=== PATIENT | male | born 1975 | race Caucasian/White ===

== ENCOUNTER 2018-01-27 18:32 | Emergency (ER) | payer OTHER ==
[~2018-01-27] VITALS: Ht 182.9 cm; Wt 62.6 kg
[~2018-01-27 18:32] MED LIST: Norco 5-325 Ta1 EACH PO; Vibramycin100 MG PO
[2018-01-27] MEDS ORDERED: IBUP600 PO (19:42)
[2018-01-27] MEDS ORDERED: CYCL10 PO (19:42)
== END 2018-01-27 19:48 | disposition home or self-care (01) ==
LOC: ER 18:32
DX: S46.012A Strain of muscle(s) and tendon(s) of the rotator cuff of left shoulder, initial encounter (principal); M54.2 Cervicalgia; Z88.0 Allergy status to penicillin; Z87.891 Personal history of nicotine dependence; W10.9XXA Fall (on) (from) unspecified stairs and steps, initial encounter
CPT/HCPCS: 72040; 73030; 99283-25

== ENCOUNTER 2018-08-13 12:50 | Emergency (ER) | payer OTHER ==
[~2018-08-13] VITALS: Ht 180.3 cm; Wt 63.5 kg
[~2018-08-13 12:50] MED LIST changes: +CYCL10 PO; +IBUP600 PO; +Robaxin500 MG PO
[2018-08-13] MEDS ORDERED: NAPR550 PO (16:13)
[2018-08-13] MEDS ORDERED: Robaxin500 MG PO (16:13)
== END 2018-08-13 16:15 | disposition home or self-care (01) ==
LOC: ER 12:50
DX: M54.2 Cervicalgia (principal); M54.5 Low back pain; Z88.0 Allergy status to penicillin; Z87.891 Personal history of nicotine dependence
CPT/HCPCS: 71046; 72040; 72100; 73590; 96372; 99284-25; J1885

== ENCOUNTER 2018-09-09 15:24 | Emergency (ER) | payer OTHER ==
[~2018-09-09] VITALS: Ht 180.3 cm; Wt 65.3 kg
[~2018-09-09 15:24] MED LIST changes: +NAPR550 PO
[2018-09-09] MEDS ORDERED: Bactrim Ds Tab1 EACH PO (15:54)
== END 2018-09-09 16:10 | disposition home or self-care (01) ==
LOC: ER 15:24
DX: L02.31 Cutaneous abscess of buttock (principal); R59.0 Localized enlarged lymph nodes; Z88.0 Allergy status to penicillin
CPT/HCPCS: 10060; 99283-25; A9270-GY

== ENCOUNTER 2019-06-03 09:26 | Emergency (ER) | payer OTHER ==
[~2019-06-03] VITALS: Ht 180.3 cm; Wt 58.1 kg
[~2019-06-03 09:26] MED LIST changes: +Bactrim Ds Tab1 EACH PO
[2019-06-03 11:39] LABS: U Amphetamine Screen Not Detected; U Barbituate Screen Not Detected; U Benzodiazapine Screen Not Detected; U Buprenorphine Screen Not Detected; U Cannabinoids Screen DETECTED; U Cocaine Screen Not Detected; U Methadone Screen Not Detected; U Methamphetamine Screen Not Detected; U Opiates Screen Not Detected; U Oxycodone Screen Not Detected; U Phencyclidine Screen Not Detected; U Propoxyphene Screen Not Detected
[2019-06-03] MEDS ORDERED: Robaxin-750750 MG PO (11:56)
== END 2019-06-03 12:07 | disposition home or self-care (01) ==
LOC: ER 09:26
PROVIDERS: Physician Assistant
DX: R07.89 Other chest pain (principal); R51 Headache; M54.2 Cervicalgia; Z88.0 Allergy status to penicillin; Z87.891 Personal history of nicotine dependence; Y04.0XXA Assault by unarmed brawl or fight, initial encounter
CPT/HCPCS: 70450; 71046; 72125; 99284-25

== ENCOUNTER 2024-10-21 10:32 | Emergency (ER) | payer OTHER ==
[~2024-10-21] VITALS: Ht 182.9 cm; Wt 63.5 kg
[~2024-10-21 10:32] MED LIST changes: +Robaxin-750750 MG PO
[2024-10-21 10:39] VITALS: BP 152/84
[2024-10-21] MEDS ORDERED: NS 1,000 ML IV SCH (10:50)
[2024-10-21] MEDS ORDERED: Ketorolac Tromethamine 30mg Vial IV ONE (10:50)
[2024-10-21 11:05] LABS: BASOPHILS ABSOLUTE AUTO 0.01 K/mm3 (0.00-0.23); BASOPHILS PERCENT AUTO 0 % (0-2); EOSINOPHILS ABSOLUTE AUTO 0.13 K/mm3 (0.00-0.68); EOSINOPHILS PERCENT AUTO 2 % (0-6); Hematocrit 41.7 % (37.0-53.0); Hemoglobin 14.6 g/dL (13.5-17.5); IMMATURE GRAN ABSOLUTE AUTO 0.03 K/mm3 (0.00-0.10); IMMATURE GRAN PERCENT AUTO 0 % (0-1); LYMPHOCYTES ABSOLUTE AUTO 1.25 K/mm3 (0.84-5.20); LYMPHOCYTES PERCENT AUTO 15 % (21-46); MONOCYTES ABSOLUTE AUTO 0.73 K/mm3 (0.16-1.47); MONOCYTES PERCENT AUTO 9 % (4-13); Mean Corpuscular HGB Conc 35.0 g/dL (31.5-36.5); Mean Corpuscular Volume 87 fL (80-100); NEUTROPHILS ABSOLUTE AUTO 6.08 K/mm3 (1.96-9.15); NEUTROPHILS PERCENT AUTO 74 % (41-73); NRBC ABSOLUTE 0.00 K/mm3 (0.00-0.02); NRBC Auto 0.0 /100 WBC (0.0-0.2); Platelet Count 298 K/mm3 (150-400); RDW Coefficient Variation 12.8 % (11.7-14.2); RDW Standard Deviation 41.3 fL (35.1-46.3)
[2024-10-21 11:26] LABS: Alanine Aminotransfer (ALT/SGP 23.0 U/L (12-78); Albumin, Blood 3.8 g/dL (3.4-5.0); Albumin/Globulin Ratio 1.1 (0.8-1.8); Anion Gap 9.0 mmol/L (3-11); Aspartate Aminotrans (AST/SGOT 23.0 U/L (12-37); Bilirubin, Total 0.6 mg/dL (0.1-1.0); Blood Urea Nitrogen 11.0 mg/dL (8-24); CO2, Blood 22.0 mmol/L (21-32); Calcium, Blood 8.5 mg/dL (8.5-10.1); Chloride, Blood 108.0 mmol/L (98-108); Creatinine, Blood 0.75 mg/dL (0.60-1.20); Globulin, Blood 3.5 g/dL (2.2-4.0); Glucose, Blood 130.0 mg/dL (70-99); Potassium, Blood 3.9 mmol/L (3.5-5.5); Sodium, Blood 135.0 mmol/L (136-145); Total Protein, Blood 7.3 g/dL (6.4-8.2)
[2024-10-21] MEDS ORDERED: OXYC5 PO (14:00)
== END 2024-10-21 14:03 | disposition home or self-care (01) ==
LOC: ER 10:32
PROVIDERS: Emergency Medicine
DX: K85.90 Acute pancreatitis without necrosis or infection, unspecified (principal); G43.909 Migraine, unspecified, not intractable, without status migrainosus; Z88.0 Allergy status to penicillin; Z79.899 Other long term (current) drug therapy
CPT/HCPCS: 76705; 80053; 83690; 85025; 96361; 96374; 99284-25; J1885; J7030

== ENCOUNTER 2024-11-09 13:17 | Emergency (ER) | payer OTHER ==
[~2024-11-09] VITALS: Ht 182.9 cm; Wt 68.0 kg
[~2024-11-09 13:17] MED LIST changes: +OXYC5 PO
[2024-11-09 13:31] VITALS: BP 109/75
[2024-11-09] MEDS ORDERED: IBUP600 PO (14:27)
== END 2024-11-09 14:43 | disposition home or self-care (01) ==
LOC: ER 13:17
DX: S80.11XA Contusion of right lower leg, initial encounter (principal); Z87.891 Personal history of nicotine dependence; Z88.0 Allergy status to penicillin; W22.8XXA Striking against or struck by other objects, initial encounter
CPT/HCPCS: 73590; 99283-25